=== PATIENT | female | born 1965 ===

== ENCOUNTER 2020-04-04 19:01 | Emergency (ER) | payer OTHER ==
--- NOTE | 2020-04-04 19:59 | EDM.PDOC ---
ED HPI GENERAL MEDICAL PROBLEM - General Chief Complaint: Respiratory Problem Stated Complaint: cough and tightness in chest no temp Time Seen by Provider: 04/04/20 19:15 Source of Information: Reports: Patient History Limitations: Reports: No Limitations - History of Present Illness INITIAL COMMENTS - FREE TEXT/NARRATIVE: This is a 54-year-old female. For the last week the patient states she has been exhausted. She feels like her chest is tight though she has no wheezing. Is psych when there is harvest time and the fine dust is in the air and she has a hard time taking a breath. She does have a dry cough for the last week as well. She has had no exposure to COVID that she is aware of but she is a teacher. She says she has been very stressed over the last week because of school as well as home situation with a lot of many disasters occurring in her family's life. She states she took a nap today and she is not a nap taker. She denies any headache she denies any nausea vomiting or diarrhea. But she comes to the ER for evaluation. She has no history of heart problems. Her pulse ox on room air is 95 to 97%. - Related Data Allergies Allergy/AdvReac Type Severity Reaction Status Date / Time No Known Allergies Allergy Verified 07/16/15 10:25 Past Medical History - Past Health History Medical/Surgical History: Denies Medical/Surgical History HEENT History: Reports: Impaired Vision Social & Family History - Family History Family Medical History: Noncontributory - Tobacco Use Smoking Status *Q: Never Smoker - Caffeine Use Caffeine Use: Reports: Coffee - Recreational Drug Use Recreational Drug Use: No ED ROS GENERAL - Review of Systems Review Of Systems: See Below Constitutional: Reports: Fatigue. Denies: Fever, Chills HEENT: Denies: Rhinitis, Sinus Problem, Throat Pain Respiratory: Reports: Cough. Denies: Shortness of Breath, Wheezing Cardiovascular: Reports: Chest Pain Endocrine: Reports: No Symptoms GI/Abdominal: Denies: Abdominal Pain, Diarrhea, Nausea, Vomiting : Reports: No Symptoms Musculoskeletal: Reports: No Symptoms Skin: Reports: No Symptoms Neurological: Reports: No Symptoms Psychiatric: Reports: No Symptoms Hematologic/Lymphatic: Reports: No Symptoms ED EXAM, GENERAL - Physical Exam Exam: See Below Exam Limited By: No Limitations General Appearance: Alert, WD/WN, No Apparent Distress Eye Exam: Bilateral Eye: Normal Inspection Ears: Normal External Exam, Normal Canal, Normal TMs Nose: Normal Inspection Throat/Mouth: Normal Inspection, Normal Lips, Normal Oropharynx, Normal Voice, No Airway Compromise Head: Normocephalic Neck: Supple Respiratory/Chest: No Respiratory Distress, Lungs Clear, Normal Breath Sounds. No: Crackles, Rales, Rhonchi, Wheezing Cardiovascular: Regular Rate, Rhythm, No Murmur GI/Abdominal: Soft, Non-Tender Back Exam: Normal Inspection, Full Range of Motion Extremities: Normal Inspection, Normal Range of Motion Neurological: Alert, Oriented Psychiatric: Normal Affect, Normal Mood Skin Exam: Warm, Dry EKG INTERPRETATION EKG Date: 04/04/20 Time: 18:55 EKG Interpretation Comments: EKG shows a normal sinus rhythm with no acute ST or T wave changes and no ischemia noted. Rate is 78. Course - Vital Signs Last Recorded V/S: Last Vital Signs Temp 97.9 F 04/04/20 19:12 Pulse 89 04/04/20 19:12 Resp 14 04/04/20 19:12 BP 127/87 04/04/20 19:12 Pulse Ox 93 L 04/04/20 19:12 - Orders/Labs/Meds Orders: Active Orders 24 hr Category Date Time Status EKG 12 Lead [EKG Documentation Completion] [RC] STAT Care 04/04/20 19:44 Active Chest 2V [CR] Stat Exams 04/04/20 19:44 Taken CORONAVIRUS COVID-19 PCR PHL Stat Lab 04/04/20 22:07 Stop Req Labs: Laboratory Tests 04/04/20 04/04/20 Range/Units 20:00 20:00 WBC 4.91 (3.98-10.04) K/mm3 RBC 4.38 (3.98-5.22) M/mm3 Hgb 13.3 (11.2-15.7) gm/dl Hct 38.9 (34.1-44.9) % MCV 88.8 (79.4-94.8) fl MCH 30.4 (25.6-32.2) pg MCHC 34.2 (32.2-35.5) g/dl RDW Std Deviation 40.6 (36.4-46.3) fL Plt Count 237 (182-369) K/mm3 MPV 8.4 L (9.4-12.3) fl Neut % (Auto) 61.9 (34.0-71.1) % Lymph % (Auto) 22.6 (19.3-51.7) % [place] % (Auto) 14.1 H (4.7-12.5) % Eos % (Auto) 0.6 L (0.7-5.8) Baso % (Auto) 0.2 (0.1-1.2) % Neut # (Auto) 3.04 (1.56-6.13) K/mm3 Lymph # (Auto) 1.11 L (1.18-3.74) K/mm3 [place] # (Auto) 0.69 H (0.24-0.36) K/mm3 Eos # (Auto) 0.03 L (0.04-0.36) K/mm3 Baso # (Auto) 0.01 (0.01-0.08) K/mm3 Sodium 138 (136-145) mEq/L Potassium 4.2 (3.5-5.1) mEq/L Chloride 102 (98-107) mEq/L Carbon Dioxide 31 (21-32) mEq/L Anion Gap 9.2 (5-15) BUN 10 (7-18) mg/dL Creatinine 0.9 (0.55-1.02) mg/dL Est Cr Clr Drug Dosing 59.80 mL/min Estimated GFR (MDRD) > 60 (>60) mL/min BUN/Creatinine Ratio 11.1 L (14-18) Glucose 93 (74-106) mg/dL Calcium 8.5 (8.5-10.1) mg/dL Total Bilirubin 0.6 (0.2-1.0) mg/dL AST 20 (15-37) U/L ALT 24 (14-59) U/L Alkaline Phosphatase 19 L (46-116) U/L Troponin I < 0.017 (0.00-0.056) ng/mL Total Protein 7.0 (6.4-8.2) g/dl Albumin 3.1 L (3.4-5.0) g/dl Globulin 3.9 gm/dL Albumin/Globulin Ratio 0.8 L (1-2) - Radiology Interpretation Free Text/Narrative:: X-ray suggests that she has some hazy opacities in the lower lung area but no discrete pneumonia. No congestive heart failure. - Re-Assessments/Exams Free Text/Narrative Re-Assessment/Exam: 04/04/20 22:22 I spoke to the patient regarding her test results EKG and blood work. I indicated that we would do a COVID test on her that would take about 3 days but she is decided she does not want it done and if she continues to feel worse then she will go to the COVID clinic to get swabbed. In the meantime I am going to give her off a few days from work so she can sleep and rest and hopefully begin to feel better. The vague opacities in her lower lung area with a normal white count and labs do not suggest a pneumonia at this time though it could be COVID. The patient is aware of this. Departure - Departure Time of Disposition: 22:23 Disposition: Home, Self-Care 01 Condition: Good Clinical Impression: Stressful life events affecting family and household Fatigue Qualifiers: Fatigue type: unspecified Qualified Code(s): R53.83 - Other fatigue - Discharge Information *PRESCRIPTION DRUG MONITORING PROGRAM REVIEWED*: Not Applicable *COPY OF PRESCRIPTION DRUG MONITORING REPORT IN PATIENT [place]AH[place]: Not Applicable Instructions: Mindfulness-Based Stress Reduction Referrals: Christina Estrada PA-C [Primary Care Provider] - Forms: ED Department Discharge Additional Instructions: You need to rest sleep and hydrate as much as possible for the next 2 to 3 days, if you find your symptoms seeming to get worse or your tightness in your chest seems to be getting worse then call the COVID clinic at [phone] and they will do a COVID test on you, return to the ER if your symptoms worsen. Sepsis Event Note (ED) - Evaluation Sepsis Screening Result: No Definite Risk - Focused Exam Vital Signs: Vital Signs Temp Pulse Resp BP Pulse Ox 04/04/20 19:12 97.9 F 89 14 127/87 93 L - My Orders Last 24 Hours: My Active Orders 04/04/20 19:44 EKG 12 Lead [EKG Documentation Completion] [RC] STAT Chest 2V [CR] Stat 04/04/20 22:07 CORONAVIRUS COVID-19 PCR PHL Stat - Assessment/Plan Last 24 Hours: My Active Orders 04/04/20 19:44 EKG 12 Lead [EKG Documentation Completion] [RC] STAT Chest 2V [CR] Stat 04/04/20 22:07 CORONAVIRUS COVID-19 PCR PHL Stat
--- NOTE | 2020-05-11 16:31 | CR ---
PROCEDURE INFORMATION: Exam: XR Chest, 2 Views Exam date and time: 04/04/2020 8:38 PM Age: 54 years old Clinical indication: Shortness of breath TECHNIQUE: Imaging protocol: XR of the chest Views: 2 views. COMPARISON: CT Chest w Cont 07/17/2015 8:47 AM FINDINGS: Lungs: The lung volumes are fairly low. There are hazy opacities in the lung bases bilaterally. The upper lung gar are clear. Pleural space: There are no pleural effusions. There is no pneumothorax. Heart/Mediastinum: The heart size is normal as are the mediastinal and hilar contours. The pulmonary vessels are normal. Bones/joints: No acute osseous pathology is identified. IMPRESSION: 1. Bibasilar hazy opacities accentuated by low lung volumes. Consider early pneumonia. 2. Normal heart size. No acute CHF identified. Thank you for allowing us to participate in the care of your patient. Dictated and Authenticated by: Gianna Ferrara MD 05/11/2020 5:20 PM Central Time ([place] & [place]) KEELY
== END 2020-04-04 22:34 | disposition home or self-care (01) ==
LOC: JD.ED 19:01
DX: Z63.8 Other specified problems related to primary support group (principal); R53.83 Other fatigue
CPT/HCPCS: 36415; 71046; 71046-26; 80053; 84484; 85025; 93005; 93010; 99282; 99285-25